=== PATIENT | female | born 1975 | race Caucasian/White ===

== ENCOUNTER 2019-10-17 10:40 | Day surgery (SDC) | payer OTHER ==
[~2019-10-17] VITALS: Ht 160 cm; Wt 53.2 kg
[~2019-10-17 10:40] MED LIST: ACYC800 PO; BUPR150ER PO; FLUO10 PO; PANT40 PO
--- NOTE | 2019-10-17 13:22 | NUR ---
10/17/19 1322 Reyna CaceresCassidy POST PROCEDURE, PT AWOKE & REMOVED BITE BLOCK. PT THEN BIT DOWN IN LOWER LIP. PT INSTRUCTED TO OPEN MOUTH. PT DROWSY BUT FOLLOWS COMMANDS. PT COMPLAINED OF LIP DISCOMFORT IN RECOVERY. LOWER LIP INDENTED BUT DID NOT PUNCTURE MEMBRANE.
== END 2019-10-17 13:17 | disposition home or self-care (01) ==
LOC: ORSCSDS 10:40
PROVIDERS: Student in an Organized Health Care Education/Training Program
PROC: 0DB58ZX Excision of Esophagus, Via Natural or Artificial Opening Endoscopic, Diagnostic (ICD-10-PCS; principal; 2019-10-17 12:30)
PROC: 0DB68ZX Excision of Stomach, Via Natural or Artificial Opening Endoscopic, Diagnostic (ICD-10-PCS; principal; 2019-10-17 12:30)
PROC: 0DB98ZX Excision of Duodenum, Via Natural or Artificial Opening Endoscopic, Diagnostic (ICD-10-PCS; principal; 2019-10-17 12:30)
DX: R10.13 Epigastric pain (principal); Z87.891 Personal history of nicotine dependence; Z79.899 Other long term (current) drug therapy
CPT/HCPCS: 88305; 88342; J2250; J2704; J7120